=== PATIENT | female | born 1940 | race Caucasian/White ===

== ENCOUNTER 2019-07-22 21:49 | Emergency (ER) | payer MEDICARE ==
[~2019-07-22] VITALS: Ht 160 cm; Wt 59.1 kg
[2019-07-22 21:56] VITALS: Ht 160 cm; Wt 59.1 kg
[2019-07-22] MEDS ORDERED: NORVASC5 MG PO (21:58)
[2019-07-22] MEDS ORDERED: TIMOPTIC 0.5 % O5 ML EACH EYE (21:58)
[2019-07-22] MEDS ORDERED: LIPITOR20 MG PO (21:58)
[2019-07-22] MEDS ORDERED: LOPRESSOR25 MG PO (21:59)
[2019-07-22] MEDS ORDERED: COZAAR25 MG PO (21:59)
[2019-07-22] MEDS ORDERED: PROLIA INJ 660 MG/M1 SC (22:00)
[2019-07-22] MEDS ORDERED: BAYER CHEWABLE81 MG PO (22:00)
[2019-07-22] MEDS ORDERED: KLONOPIN1 MG PO (22:00)
[2019-07-22] MEDS ORDERED: PLAVIX75 MG PO (22:00)
[2019-07-22] MEDS ORDERED: CLARITIN 10 MG10 MG PO (22:01)
[2019-07-22] MEDS ORDERED: VITAMIN D250000 UNIT PO (22:01)
[2019-07-22] MEDS ORDERED: CALCIUM 600 +1 EAC3 PO (22:01)
[2019-07-22 23:09] VITALS: BP 140/77
== END 2019-07-22 23:10 | disposition home or self-care (01) ==
LOC: D.ER 21:49
DX: I10 Essential (primary) hypertension (principal)